=== PATIENT | female | born 1995 ===

== ENCOUNTER 2018-07-31 16:32 | Emergency (ER) | payer SELFPAY ==
[2018-07-31 16:38] VITALS: BMI 26.6
[2018-07-31 17:00] VITALS: BP 125/51; PULSE 64; TEMP 98.8
--- NOTE | 2018-07-31 17:05 | PDOC ---
History of Present Illness - General Chief Complaint: Pain, Acute Stated Complaint: FLANK PAIN Time Seen by Provider: 07/31/18 17:01 History Source: Patient Past History - Past Medical History COPD: No - Suicide/Smoking/Psychosocial Hx Smoking History: Never smoked Hx Alcohol Use: No Drug/Substance Use Hx: No *Physical Exam - Vital Signs Last Vital Signs Temp Pulse Resp BP Pulse Ox 98.8 F 64 18 125/51 L 100 07/31/18 16:32 07/31/18 16:32 07/31/18 16:32 07/31/18 16:32 07/31/18 16:32 *DC/Admit/Observation/Transfer - Discharge Dispostion Condition at time of disposition: Stable - Referrals - Patient Instructions - Post Discharge Activity
[2018-07-31 18:05] LABS: URINE APPEARANCE Clear; URINE BILIRUBIN Negative (NEGATIVE); URINE COLOR Yellow; URINE GLUCOSE (UA) Negative (NEGATIVE); URINE KETONE Negative (NEGATIVE); URINE LEUK ESTERASE TRACE (NEGATIVE); URINE NITRITE Negative (NEGATIVE); URINE PROTEIN Negative (NEGATIVE); URINE UROBILINOGEN 0.2 (0.2-1.0)
[2018-07-31] MEDS ORDERED: KETOROLAC TROMETHAMINE 30 MG/1 ML VIAL IM ONE (18:46)
[2018-07-31] MEDS ORDERED: KETOROLAC TROMETHAMINE 30 MG/1 ML VIAL ONE (18:49)
[2018-07-31 19:16] LABS: EPI CELLS FEW /HPF; URINE BACTERIA 1+ /hpf (NEGATIVE); URINE RBC 0-2 /hpf (0-3)
== END 2018-07-31 19:00 | disposition home or self-care (01) ==
LOC: FER 16:32 → EDBD 16:32 → FER 19:00
PROC: 3E02329 Introduction of Other Anti-infective into Muscle, Percutaneous Approach (ICD-10-PCS; principal; 2018-07-31)
PROC: 3E0233Z Introduction of Anti-inflammatory into Muscle, Percutaneous Approach (ICD-10-PCS; 2018-07-31)
DX: R10.31 Right lower quadrant pain (principal)
CPT/HCPCS: 72170-TC-FY; 81003; 81015; 84703; 87086; 99282-25